=== PATIENT | male | born 1990 | race Caucasian/White ===

== ENCOUNTER 2023-06-15 23:10 | Emergency (ER) | payer SELFPAY ==
[2023-06-15] VITALS (10 sets, daily range): BP systolic 150–169; BP diastolic 97–103; PULSE 82–94; RESP 11–22; TEMP 36.6; O2SAT 99–100; BMI 28.0
--- NOTE | 2023-06-15 23:33 | ECG_ITS ---
[facility] Test Date: 2023-06-15 Pat Name: Serafin Sinclair Department: Room: - Gender: Male [employer]: : 1990 Requested By: Order Number: [id number] Reading MD: ALLIE CHENEY Measurements Intervals [place] Rate: 80 P: 38 FL: 144 QRS: 90 QRSD: 92 T: 42 QT: 354 QTc: 390 Interpretive Statements 1100 Sinus rhythm 1102 Sinus arrhythmia 9110 normal ECG No previous ECG available for comparison Electronically Signed On 06-16-2023 7:44:52 EST by ALLIE CHENEY
--- NOTE | 2023-06-15 23:33 | XR_ITS ---
[facility] [place] [id number] Patient Name: LILLIE ART MRN: [id number] date: 1990 Sex: M Assigned Patient Location: ER Current Patient Location: ED.MAIN Accession/Order Number: [id number] Exam Date: 06/15/2023 23:45 Report Date: 06/16/2023 00:23 At the request of: NAVA MATIAS Procedure: XR chest 1V EXAM: XR chest 1V HISTORY: chest pain COMPARISON: None available TECHNIQUE: Single frontal view chest x-ray FINDINGS: No lung consolidation, large pleural effusion, pneumothorax, or acute bony abnormality. Cardiac size is unremarkable. XR/XR chest 1V IMPRESSION: No radiographic evidence for acute chest abnormality. Electronically authenticated by: AUGIE GILLESPIE Date: 06/16/2023 00:23
--- NOTE | 2023-06-15 23:39 | ED_ITS ---
HPI - Chest Pain General Chief Complaint: Chest Pain Stated Complaint: CHEST PAIN Time Seen by Provider: 06/15/23 23:20 Source: patient Mode of arrival: walk-in Limitations: no limitations History of Present Illness HPI narrative: patient woke with midsternal chest pain that radiated into the patient's upper left back and was associated with some sensation of tingling or numbness down the left arm. He also admits to some belching but did not have any classic heartburn symptoms. He took a Tums without relief. As the day progressed he felt like the pain moved from the lower midlung his chest into the upper left his chest. He tried some Excedrin without any improvement. He denied any associated other symptoms such as fever, chills, recent cough or cold, recent activity that may have accounted for his pain, vomiting, diarrhea or abdominal pain. He gets sweaty her feel nauseous when the pain came on. He said he had a previous episode of this was evaluated in our hospital and was told that it was due to low potassium. He did not get admitted, he was given oral potassium tablets in the emergency Department and discharged home. he takes no medications. No diagnosis of diabetes, hypertension or high cho lesterol. He is a daily smoker. He occasionally vapes. Related Data Home Medications Medication Instructions Recorded Confirmed No Known Home Medications 06/15/23 06/15/23 Allergies Allergy/AdvReac Type Severity Reaction Status Date / Time No Known Drug Allergies Allergy Verified 06/15/23 23:18 [facility] Social History Smoking status: Never smoker Exam Narrative Exam Narrative: Nurses notes and vital signs reviewed and patient is not hypoxic. afebrile General: Well-appearing and in no apparent distress. Skin: Warm, dry, no pallor noted. No rash. Eye: Pupils are equal, round and EOMI. No scleral icterus. Cardiovascular: Regular Rate and Rhythm without murmur, gallop or rub. Respiratory: No accessory muscle use or respiratory distress. Lungs are clear to auscultation, no wheezing, rales or rhonchi Chest Wall: no tenderness, crepitus or subcutaneous emphysema Musculoskeletal: normal ROM, no calf or popliteal tenderness, no lower extremity edema/swelling GI: Abdomen is soft, non-distended. Normal bowel sounds. No tenderness to palpation. No rebound, guarding, or rigidity noted. Neurological: A&O x4. No cranial nerve dysfunction observed. No truncal ataxia. Moves all extremities. Sensation intact. Psychiatric: Cooperative and interactive. Normal mood and affect. Constitutional Vital Signs, click to edit/add: Last Vital Signs Temp 98 F 06/15/23 23:15 Pulse 86 06/16/23 00:00 Resp 17 06/16/23 00:00 BP 155/100 H 06/15/23 23:32 Pulse Ox 100 06/15/23 23:20 O2 Del Method Room Air 06/15/23 23:15 Course Vital Signs Vital signs: Vital Signs Temperature 98 F 06/15/23 23:15 Pulse Rate 92 H 06/15/23 23:15 Respiratory Rate 16 06/15/23 23:15 Blood Pressure 166/103 H 06/15/23 23:15 Pulse Oximetry 99 06/15/23 23:15 Oxygen Delivery Method Room Air 06/15/23 23:15 Temperature 98 F 06/15/23 23:15 Pulse Rate 86 06/16/23 00:00 Respiratory Rate 17 06/16/23 00:00 Blood Pressure 155/100 H 06/15/23 23:32 Pulse Oximetry 100 06/15/23 23:20 Oxygen Delivery Method Room Air 06/15/23 23:15 MDM - Chest Pain MDM Narrative Medical decision making narrative: Patient was placed on groundwater monitoring technician and EKG obtained. Blood drawn and sent for evaluation. chest x-ray obtained. WBC 12k without left shift. Borderline decreased Na and K. Normal renal function. Negative d-dimer and negative troponin. EKG normal. CXR unremarkable. Patient given reassurance and discharged home. He felt better after ED treatment. Lab Data Attestation: I reviewed the patient's lab results. Labs: Lab Results 06/15/23 Range/Units 23:25 WBC 12.0 H (4.0-11.0) 10^3/uL RBC 5.08 (4.70-6.10) 10^6/uL Hgb 17.1 (14.0-18.0) g/dL Hct 48.2 (42.0-54.0) % MCV 94.9 H (80.0-94.0) fL MCH 33.7 (25.9-34.0) pg MCHC 35.5 H (29.9-35.2) g/dL RDW 13.2 (11.0-15.0) % Plt Count 245 (150-450) 10^3/uL MPV 9.8 (9.5-13.5) fL Neut % (Auto) 60.3 (43.0-75.0) % Lymph % (Auto) 30.1 (20.5-60.0) % [place] % (Auto) 6.3 (1.7-12.0) % Eos % (Auto) 2.3 (0.9-7.0) % Baso % (Auto) 0.7 (0.2-2.0) % Neut # (Auto) 7.3 H (1.4-6.5) 10^3/uL Lymph # (Auto) 3.6 (1.2-3.8) 10^3/uL [place] # (Auto) 0.8 (0.3-0.8) 10^3/uL Eos # (Auto) 0.3 (0.0-0.7) 10^3/uL Baso # (Auto) 0.1 (0.0-0.1) 10^3/uL Abs Immat Gran (auto) 0.03 (0.00-0.03) 10^3/uL Imm/Tot Granulo (auto) 0.3 (0.0-0.5) % D-Dimer 0.25 (<=0.59) mg/L FEU Sodium 135 L (136-145) mmol/L Potassium 3.3 L (3.5-5.1) mmol/L Chloride 96 L (98-107) mmol/L Carbon Dioxide 32.7 H (21.0-32.0) mmol/L Anion Gap 9.6 BUN 4.0 L (7.0-18.0) mg/dL Creatinine 0.88 (0.70-1.30) mg/dL Est GFR ( Amer) >60 (>=60) Est GFR (Non-Af Amer) >60 (>=60) BUN/Creatinine Ratio 4.5 Glucose 98 (74-106) mg/dL Calcium 9.6 (8.5-10.1) mg/dL Troponin I High Sens 6.0 (4.0-76.1) pg/mL Imaging Data Chest x-ray: Attestation: I personally reviewed and interpreted this imaging study as follows: My impression: NAD ECG Data Attestation: I personally reviewed and interpreted this ECG as follows: Interpretation: EKG interpretation: Emergency Department physician interpretation. Normal sinus rhythm at 80bpm. Normal axis, normal intervals and no ST segment elevation or depression. Normal EKG. Smoking Cessation Time spent discussing smoking cessation with patient: 3 to 10 minutes Patient Acknowledges Need for Cessation: Yes Heart Score History: Moderately Suspicious ECG: Normal Age: <45 years Risk Factors: 1 or 2 Risk Factors Troponin: <Normal Limit Total Heart Score Recommendations & Risks:: 2 Discharge Plan Discharge Chief Complaint: Chest Pain Clinical Impression: Chest pain Patient Disposition: Home, Self-Care Time of Disposition Decision: 00:20 Prescriptions / Home Meds: No Action No Known Home Medications Instructions: Chest Pain (ED) Stand Alone Forms: Portal Instructions Referrals: Physician,Non-Staff, MD [Primary Care Provider] - 1 week
--- NOTE | 2023-06-15 23:41 | PC.NURSE ---
Patient c/o left sided chest pain going into his back and a tingling sensation down left arm. patient denies any recent illness. patient has had this feeling before and states he had low potassium. patient was just lounging around the house when the chest pressure started. normal sinus ekg obtained.
[2023-06-15] MEDS: KETOROLAC TROMETHAMINE 30 MG/ML VIAL IVP (23:49)
[2023-06-15 23:50] LABS: Basophils Absolute Auto 0.1 10^3/uL (0.0-0.1); Basophils Percent Auto 0.7 % (0.2-2.0); Eosinophils Absolute Auto 0.3 10^3/uL (0.0-0.7); Eosinophils Percent Auto 2.3 % (0.9-7.0); Hematocrit 48.2 % (42.0-54.0); Hemoglobin 17.1 g/dL (14.0-18.0); Immature Granulocytes Abs Auto 0.03 10^3/uL (0.00-0.03); Immature Granulocytes Pct Auto 0.3 % (0.0-0.5); Lymphocytes Absolute Auto 3.6 10^3/uL (1.2-3.8); Lymphocytes Percent Auto 30.1 % (20.5-60.0); Mean Corpuscular HGB Conc 35.5 g/dL (29.9-35.2); Mean Corpuscular Hemoglobin 33.7 pg (25.9-34.0); Mean Corpuscular Volume 94.9 fL (80.0-94.0); Mean Platelet Volume 9.8 fL (9.5-13.5); Monocytes Absolute Auto 0.8 10^3/uL (0.3-0.8); Monocytes Percent Auto 6.3 % (1.7-12.0); Neutrophils Absolute Auto 7.3 10^3/uL (1.4-6.5); Neutrophils Percent Auto 60.3 % (43.0-75.0); Platelet Count 245 10^3/uL (150-450); Red Blood Count 5.08 10^6/uL (4.70-6.10); Red Cell Distribution Width 13.2 % (11.0-15.0)
[2023-06-15 23:54] LABS: D Dimer 0.25 mg/L FEU (<=0.59)
[2023-06-15 23:57] LABS: Anion Gap 9.6; BUN Creatinine Ratio 4.5; Calcium 9.6 mg/dL (8.5-10.1); Carbon Dioxide 32.7 mmol/L (21.0-32.0); Chloride 96 mmol/L (98-107); Estimated GFR (African America >60 (>=60); Estimated GFR (Non-African Ame >60 (>=60); Glucose 98 mg/dL (74-106); Potassium 3.3 mmol/L (3.5-5.1); Sodium 135 mmol/L (136-145)
[2023-06-16] VITALS: PULSE 86; RESP 17
== END 2023-06-16 01:02 | disposition home or self-care (01) ==
PROVIDERS: Emergency Provider Emergency Medicine
DX: R07.9 Chest pain, unspecified (principal)
CPT/HCPCS: 36415; 71045; 80048; 84484; 85025; 85378; 93005; 96374; 99285